=== PATIENT | female | born 1945 | race Caucasian/White ===

== ENCOUNTER 2019-05-20 05:33 | Outpatient (CLI) | payer MEDICARE, OTHER ==
[~2019-05-20] VITALS: Ht 165.1 cm; Wt 72.7 kg
[~2019-05-20 05:33] MED LIST: EZET10TA5 PO; FENO145T2 PO; FURO40TA4 PO; LEVO5TAB12 PO; LOSA1TAB23 PO; MNTL10T PO; OMEG1CAP58 PO; PIRO20CA2 PO; PNT40TEC PO; [UNRECOGNIZED DRUG - OTHER] PO
[2019-05-20] MEDS ORDERED: CELE200C PO (14:09)
[2019-05-20] MEDS ORDERED: FURO40TA4 PO (14:09)
[2019-05-20] MEDS ORDERED: CALC-6 PO (14:09)
[2019-05-20] MEDS ORDERED: LOSA1TAB23 PO (14:09)
[2019-05-20] MEDS ORDERED: PRAV10TA PO (14:09)
== END 2019-05-20 14:12 | disposition home or self-care (01) ==
LOC: PREOP 05:33
PROVIDERS: ATTEND Surgery
DX: Z01.818 Encounter for other preprocedural examination (principal)